=== PATIENT | female | born 1945 | race Caucasian/White ===

== ENCOUNTER 2018-04-03 23:10 | Emergency (ER) | payer MEDICARE ==
[~2018-04-03] VITALS: Ht 152.4 cm; Wt 59.0 kg
[2018-04-03 23:14] VITALS: BP 142/79; Ht 152.4 cm; Wt 59.0 kg
== END 2018-04-03 23:56 | disposition left against medical advice (07) ==
LOC: ED 23:10
DX: Z53.21 Procedure and treatment not carried out due to patient leaving prior to being seen by health care provider (principal)